=== PATIENT | male | born 1935 | race Caucasian/White ===

== ENCOUNTER 2019-12-27 10:04 | Emergency (ER) | payer MEDICARE, BC ==
--- NOTE | 2019-12-27 10:16 | EDM.PDOC ---
ED HPI GENERAL MEDICAL PROBLEM - General Chief Complaint: CPR in Progress Stated Complaint: AMBULANCE Time Seen by Provider: 12/27/19 10:05 Source of Information: Reports: EMS, Family, Old Records, RN, RN Notes Reviewed History Limitations: Reports: Other (DOA) - History of Present Illness INITIAL COMMENTS - FREE TEXT/NARRATIVE: Pt arrived to ER from home by [facility] with report of being found face down, unresponsive and pulseless in the lawn at near his mail box. Family states that the pt was weed wacking the fire hydrant. Pt's family last saw him aprox. 30 minutes before he was found. Unknown down time. A neighbor who is a nurse found him and initiated CPR. Law enforcement continued CPR. EMS continued CPR intubated the pt and placed an IO in the right tibia. Pt was defibrillated once due to finding of v-fib, and converted to PEA and asystole. He received Epinephrine 1mg IOP x3 without response. Pt arrived to ER without spontaneous respiratory effort, pulseless in asystole in 2 leads, cold to touch, mottled, with pupils fixed and dilated. Resuscitation by EMS had been in progress >15 minutes without response. Resuscitation efforts were determined to be futile and I directed the termination of efforts with time of : 10:08HRS. Bench Press Operator (Dr. Barahona) notified by Rosalinda Richardson RN. Family present, , sons, and [id number], and were informed of the pt's by me. Onset: Today, Unknown/Unsure - Related Data Allergies Allergy/AdvReac Type Severity Reaction Status Date / Time oranges Allergy Cannot Uncoded 02/24/14 10:26 Remember Home Meds: Home Meds Ascorbic Acid [Vitamin C] 500 mg PO DAILY 02/24/14 [History] Aspirin [Ecotrin] 162 mg PO DAILY 02/24/14 [History] Calcium Carb/D3/Mag AA Chelate [Coral Calcium Capsule] .EVERY OTHER DAY [History] Cinnamon Bark [Cinnamon] PRN 02/24/14 [History] Cyanocobalamin (Vitamin B12) [Vitamin B12] 250 mcg PO DAILY 02/24/14 [History] Folic Acid .EVERY OTHER DAY 02/24/14 [History] Garlic DAILY 02/24/14 [History] Grape Seed Extract [Grape Seed] DAILY 02/24/14 [History] Lisinopril [Zestril] 20 mg PO DAILY 02/24/14 [History] Selenium DAILY 02/24/14 [History] Simvastatin [Zocor] 40 mg DAILY 02/24/14 [History] Triamterene/Hydrochlorothiazid [Triamterene-HCTZ 37.5-25 MG] 1 tab DAILY [History] Vitamin B6-pyridOXINE [Vitamin B6] 50 mg PO 02/24/14 [History] Past Medical History HEENT History: Reports: Other (See Below) (Dentures) Cardiovascular History: Reports: CAD, Hypertension, Other (See Below) (CABG) Oncologic (Cancer) History: Reports: Colon Social & Family History - Family History Family Medical History: Unobtainable - Living Situation & Occupation Living situation: Reports: , with Spouse Occupation: Retired ED ROS GENERAL - Review of Systems Review Of Systems: Unable To Obtain Reason Not Obtained: ED EXAM, CPR - Physical Exam Exam: Not Obtained Departure - Departure Time of Disposition: 10:08 Disposition: 20 Clinical Impression: Cardiac arrest - Discharge Information *PRESCRIPTION DRUG MONITORING PROGRAM REVIEWED*: No *COPY OF PRESCRIPTION DRUG MONITORING REPORT IN PATIENT LANE: No Forms: ED Department Discharge Additional Instructions: DOA to ER via [facility], time of 10:08HRS. Sepsis Event Note - Focused Exam Date Exam was Performed: 12/27/19 Time Exam was Performed: 10:28
== END 2019-12-27 11:39 | disposition expired ==
LOC: DL.ED 10:04
DX: I46.9 Cardiac arrest, cause unspecified (principal); I25.10 Atherosclerotic heart disease of native coronary artery without angina pectoris; I10 Essential (primary) hypertension; Z79.82 Long term (current) use of aspirin; Z79.899 Other long term (current) drug therapy; Z91.018 Allergy to other foods; Z95.1 Presence of aortocoronary bypass graft
CPT/HCPCS: 92950; 99285-25